=== PATIENT | male | born 2000 ===

== ENCOUNTER → 2021-08-03 | Outpatient (CLI) | payer OTHER ==
--- NOTE | 2021-08-03 16:12 | REP ---
INDICATION: SPRAIN. COMPARISON: None. TECHNIQUE: Four views FINDINGS: The joint spaces are symmetric and relatively well maintained. There is no evidence of acute fracture or destructive osseous lesion. IMPRESSION: No acute abnormality <Electronically signed by Pa Murphy > 08/03/21 [id number]
--- NOTE | 2021-08-03 16:18 | REP ---
INDICATION: SPRAIN. COMPARISON: None. TECHNIQUE: Four views FINDINGS: No acute fracture or destructive osseous lesion. The mortise is intact. IMPRESSION: No acute abnormality <Electronically signed by Pa Murphy > 08/03/21 2233
== END ==
LOC: M WUC 15:51
PROVIDERS: ATTEND Physician Assistant
DX: S93.401A Sprain of unspecified ligament of right ankle, initial encounter (principal); S93.691A Other sprain of right foot, initial encounter; X58.XXXA Exposure to other specified factors, initial encounter; Y92.89 Other specified places as the place of occurrence of the external cause; Y93.89 Activity, other specified; Y99.8 Other external cause status